=== PATIENT | male | born 1950 | race Caucasian/White ===

== ENCOUNTER → 2018-01-16 | Outpatient (CLI) | payer MEDICARE ==
--- NOTE | 2018-01-16 11:32 | ECHOF ---
Referral Reason:I10 Hypertension MEASUREMENTS -------- HEIGHT: 185.4 cm WEIGHT: 106.6 kg BP: IVSd: 1.7 cm (0.6 - 1.1) LVIDd: 3.5 cm (3.9 - 5.3) LVPWd: 1.4 cm (0.6 - 1.1) IVSs: 1.9 cm LVIDs: 2.1 cm LVPWs: 1.7 cm LAESV Index (A-L): 24.14 ml/m Ao Diam: 3.6 cm (2.0 - 3.7) AV Cusp: 2.6 cm (1.5 - 2.6) LA Diam: 3.2 cm (2.7 - 3.8) MV EXCURSION: 15.965 mm (> 18.000) MV EF SLOPE: 48 mm/s (70 - 150) EPSS: 0.6 cm MV E Luke: 0.73 m/s MV DecT: 241 ms MV A Luke: 0.65 m/s MV E/A Ratio: 1.13 AR PHT: 363 ms RAP: 5.00 mmHg RVSP: 28.38 mmHg FINDINGS -------- Sinus rhythm. This was a technically good study. The left ventricular size is normal. There is moderate concentric left ventricular hypertrophy. O verall left ventricular systolic function is normal with, an EF between 55 - 60 %. The right ventricle is normal in size. Normal LA size by volume 22+/-6 ml/m2. The right atrium is normal in size. There is mild aortic regurgitation. There is trace mitral regurgitation. Trace tricuspid regurgitation present. The right ventricular systolic pressure, as measured by Dopp ler, is 28.38mmHg. Pulmonic valve appears structurally normal. The aortic root size is normal. Normal inferior vena cava with normal inspiratory collapse consistent with estimated right atrial pre ssure of 5 mmHg. The pericardium is normal. CONCLUSIONS -------- 1. Sinus rhythm. 2. This was a technically good study. 3. The left ventricular size is normal. 4. There is moderate concentric left ventricular hypertrophy. 5. Overall left ventricular systolic function is normal with, an EF between 55 - 60 %. 6. The right ventricle is normal in size. 7. Normal LA size by volume 22+/-6 ml/m2. 8. The right atrium is normal in size. 9. There is mild aortic regurgitation. 10. There is trace mitral regurgitation. 11. Trace tricuspid regurgitation present. 12. The right ventricular systolic pressure, as measured by Doppler, is 28.38mmHg. 13. Pulmonic valve appears structurally normal. 14. The aortic root size is normal. 15. Normal inferior vena cava with normal inspiratory collapse consistent with estimated right atrial pressure of 5 mmHg. 16. The pericardium is normal. POLE CLASSIFIER: Dede Jenkins RDCS
== END | disposition home or self-care (01) ==
LOC: RADECHMAIN 08:03
PROVIDERS: ATTEND Family Medicine
DX: I35.1 Nonrheumatic aortic (valve) insufficiency (principal); I11.9 Hypertensive heart disease without heart failure
CPT/HCPCS: 93306

== ENCOUNTER 2024-09-20 14:29 | Emergency (ER) | payer MEDICARE ==
[2024-09-20 14:37] VITALS: RESP 18
--- NOTE | 2024-09-20 15:03 | ED ---
Fall HPI - General Source: patient, family Mode of arrival: ambulatory Limitations: no limitations <Kate Godwin - Last Filed: 09/20/24 16:18> <Tabby Orantes - Last Filed: 09/20/24 16:42> - General Chief Complaint: Fall Stated Complaint: Fall, chest injury Time Seen by Provider: 09/20/24 15:00 - History of Present Illness Initial Comments: 74-year-old male presented the ER status post fall. Patient reports he was standing on a wagon painting the side of his building. Patient states he took a step to the side while painting and accidentally stepped off of the wagon. Patient states he fell landing on his left shoulder/chest. Patient does admit to head injury and notes abrasion to forehead. He denies loss of consciousness or blood thinner use. Tetanus status unknown. Patient's main complaint is a sore left-sided chest pressure made worse with inspiration. He denies any dizziness, lightheadedness, nausea, vomiting or shortness of breath. Patient reports chest discomfort started after fall. He did take 2 Advil prior to arrival. Patient denies any neck pain or paresthesias to bilateral upper or lower extremities. No back pain. No other reported injuries. (Kate Godwin) - Related Data Allergies Allergy/AdvReac Type Severity Reaction Status Date / Time No Known Allergies Allergy Verified 09/20/24 14:37 Review of Systems ROS Other: All systems not noted in ROS Statement are negative. <Kate Godwin - Last Filed: 09/20/24 16:18> ROS Other: All systems not noted in ROS Statement are negative. <Tabby Orantes - Last Filed: 09/20/24 16:42> ROS Statement: Those systems with pertinent positive or pertinent negative responses have been documented in the HPI. Past Medical History Past Medical History: Diabetes Mellitus Additional Past Medical History / Comment(s): gout Past Surgical History: Hernia Repair Smoking Status: Never smoker Past Alcohol Use History: None Reported Past Drug Use History: None Reported <Kate Godwin - Last Filed: 09/20/24 16:18> General Exam Limitations: no limitations General appearance: alert, in no apparent distress Head exam: Present: normocephalic, normal inspection, other (Abrasion left forehead minimal ooze of blood.) Eye exam: Present: normal appearance, PERRL, EOMI. Absent: scleral icterus, conjunctival injection, periorbital swelling Pupils: Present: normal accommodation ENT exam: Present: normal exam, normal oropharynx, mucous membranes moist, normal external ear exam Neck exam: Present: normal inspection. Absent: tenderness, meningismus, lymph adenopathy Respiratory exam: Present: normal lung sounds bilaterally, chest wall tenderness (Left anterior chest. No paradoxical chest wall motions.). Absent: respiratory distress, wheezes, rales, rhonchi, stridor Cardiovascular Exam: Present: regular rate, normal rhythm, normal heart sounds. Absent: systolic murmur, diastolic murmur, rubs, gallop, clicks Extremities exam: Present: normal inspection, full ROM, normal capillary refill (2+ bilateral radial and PT pulses.). Absent: tenderness, pedal edema, joint swelling, calf tenderness Neurological exam: Present: alert, oriented X3, CN II-XII intact Skin exam: Present: warm, dry, intact, normal color, abrasion (Right knee). Absent: rash <Kate Godwin - Last Filed: 09/20/24 16:18> Course Vital Signs 09/20/24 14:32 Temperature 98.3 F Pulse Rate 72 Respiratory 18 Rate Blood Pressure 172/80 O2 Sat by Pulse 98 Oximetry Medical Decision Making <Kate Godwin - Last Filed: 09/20/24 16:18> <Tabby Orantes - Last Filed: 09/20/24 16:42> - Medical Decision Making Was pt. sent in by a medical professional or institution (TATIANA Dickerson, EXPORT ADMINISTRATOR, urgent care, hospital, or long term...) When possible be specific @ -[No] Did you speak to anyone other than the patient for history (EMS, parent, family, police, friend...)? What history was obtained from this source @ -Patient's , bedside, aiding in HPI past medical history. Did you review nursing and triage notes (agree or disagree)? Why? @ -[I reviewed and agree with nursing and triage notes] Were old charts reviewed (outside hosp., previous admission, EMS record, old EKG, old radiological studies, urgent care reports/EKG's, long term records)? Report findings @ -[No old charts were reviewed] Differential Diagnosis (chest pain, altered mental status, abdominal pain women, abdominal pain men, vaginal bleeding, weakness, fever, dyspnea, syncope, headache, dizziness, GI bleed, back pain, seizure, CVA, palpatations, mental health, musculoskeletal)? @ -Fracture, dislocation, contusion, hematoma, intracranial hemorrhage, concussion, abrasion, laceration this list does not like to be all-inclusive] EKG interpreted by me (3pts min.). @ -None done X-rays interpreted by me (1pt min.). @ -[None done] CT interpreted by me (1pt min.). @ -[None done] U/S interpreted by me (1pt. min.). @ -[None done] What testing was considered but not performed or refused? (CT, X-rays, U/S, labs)? Why? @ -[None] What meds were considered but not given or refused? Why? @ -[None] Did you discuss the management of the patient with other professionals (professionals i.e. , PA, EXPORT ADMINISTRATOR, lab, RT, psych nurse, social group worker, load checker, teacher, residential care officer, counter caser)? Give summary @ -[No] Was smoking cessation discussed for >3mins.? @ -[No] Was critical care preformed (if so, how long)? @ -[No] Were there social determinants of health that impacted care today? How? (Homelessness, low income, unemployed, alcoholism, drug addiction, transportation, low edu. Level, literacy, decrease access to med. care, fdc, rehab)? @ -[No] Was there de-escalation of care discussed even if they declined (Discuss DNR or withdrawal of care, Hospice)? DNR status @ -[No] What co-morbidities impacted this encounter? (DM, HTN, Smoking, COPD, CAD, Cancer, CVA, ARF, Chemo, Hep., AIDS, mental health diagnosis, sleep apnea, morbid obesity)? @ -[None] Was patient admitted / discharged? Hospital course, mention meds given and route, prescriptions, significant lab abnormalities, going to OR and other perti nent info. @ -[hospital course] Undiagnosed new problem with uncertain prognosis? @ -[No] Drug Therapy requiring intensive monitoring for toxicity (Heparin, Nitro, Insulin, Cardizem)? @ -[No] Were any procedures done? @ -[No] Diagnosis/symptom? @ -[default] Acute, or Chronic, or Acute on Chronic? @ -[default] Uncomplicated (without systemic symptoms) or Complicated (systemic symptoms)? @ -[default] Side effects of treatment? @ -[No] Exacerbation, Progression, or Severe Exacerbation? @ -[No] Poses a threat to life or bodily function? How? (Chest pain, [place], CA, pneumonia, PE, COPD, DKA, ARF, appy, cholecystitis, CVA, Diverticulitis, Homicidal, Suicidal, threat to staff... and all critical care pts) @ -[No] (Kate Godwin) Sinus bradycardia, rate 56 bpm slightly prolonged NE interval, parable 221 ms first-degree AV block, otherwise intervals within acceptable limits, no significant ST elevations or depressions (Tabby Orantes) Disposition Is patient prescribed a controlled substance at d/c from ED?: No Time of Disposition: 16:19 <Kate Godwin - Last Filed: 09/20/24 16:18> Is patient prescribed a controlled substance at d/c from ED?: No <Tabby Orantes - Last Filed: 09/20/24 16:42> Clinical Impression: Fall, Contusion of rib Disposition: HOME SELF-CARE Condition: Stable Instructions (If sedation given, give patient instructions): How to Use an Incentive Spirometer (ED), Rib Contusion (ED) Additional Instructions: You may take [id number] ibuprofen and Tylenol for pain control. Be sure to take deep breaths and use incentive spirometer throughout the day to prevent pneumonia. Follow closely with PCP. Return to the ER for any new or worsening concerns. Every disease is a spectrum and a small chance still exists that a serious condition could develop, for this reason, please monitor yourself closely for new, changing or worsening symptoms, symptoms that persist beyond 48 hours, difficulty in breathing, worsening chest pain, coughing up blood, chest pain with exertion fever, inability to tolerate/keep down fluids or your medications, inability to follow up with outpatient providers as instructed and should you experience these symptoms or should you have any further concerns for your wellbeing please return to the ED or call 911 immediately. PLEASE call your primary care physician as soon as possible to arrange / discuss plan for followup appointment. Appointment in the next 1-3 days is strongly encouraged if possible. PLEASE let us know here before you leave if there is anything further we can do to be of any assistance. Take care and feel Better! Referrals: Christopher Baeza, DO [Primary Care Provider] - 1-2 days
[2024-09-20] MEDS: ACETAMINOPHEN TAB 325 MG TAB PO STA (15:08)
[2024-09-20] MEDS: LIDOCAINE 4% PATCH TOPICAL ONE (15:09)
[2024-09-20] MEDS: DIPH,PERTUS(ACELL)TETVAC-LF 0.5 ML VIAL IM ONE (15:12)
--- NOTE | 2024-09-20 15:47 | CT ---
EXAMINATION TYPE: CT brain wo con CT DLP: 1170.4 mGycm, Automated exposure control for dose reduction was used. DATE OF EXAM: 09/20/2024 3:34 PM COMPARISON: None. CLINICAL INDICATION:Male, 74 years old with history of fall, fall, pain TECHNIQUE: Brain: Multiple axial CT images of the brain were obtained without IV contrast. . Coronal and sagitta l reformats reviewed. FINDINGS: Brain: Extra-axial spaces: No abnormal extra-axial fluid collections. Ventricular system: Within normal limits Cerebral parenchyma: No acute intraparenchymal hemorrhage or mass effect. The clinton-white junction is well differentiated. Cerebellum: Unremarkable. Mass effect: No evidence of midline shift. Intracranial vasculature: unremarkable Soft tissues: Normal. Calvarium/osseous structures: No depressed skull fracture. Paranasal sinuses and mastoid air cells: Clear Visualized orbits: Orbital contents are intact. IMPRESSION: No acute intracranial process. [facility], , 09/20/2024 3:45 PM
--- NOTE | 2024-09-20 16:02 | XR ---
EXAMINATION TYPE: XR ribs LT w pa chest xray (5 views), XR shoulder complete 3 views LT DATE OF EXAM: 09/20/2024 3:38 PM COMPARISON: None CLINICAL INDICATION: Male, 74 years old with history of fall; PHH, pain FINDINGS: CHEST: Heart upper limits of normal in size. Aorta and pulmonary vasculature within normal limits. Some stra ndy atelectasis in lower lungs. No consolidation or pleural effusion. Left RIBS: No displaced left rib fracture is seen. Left shoulder: AC joint appears congruent without any abnormal offset. Subacromial space is preserved. There is mode rate degenerative change of the glenohumeral joint with marginal coronary Space narrowing. Some bony irregularity at the greater tuberosity. IMPRESSION: 1. Chest: Chronic changes. No acute process seen. 2. Left rib: No displaced left rib fractures. 3. Left shoulder: Moderate glenohumeral joint OA. Some bony changes at the greater tuberosity suggest ing chronic rotator cuff tendinopathy. [facility], Workstation: [facility], 09/20/2024 4:00 PM
[2024-09-20 17:03] VITALS: BP 166/87; PULSE 54; TEMP 97.4
== END 2024-09-20 17:04 | disposition home or self-care (01) ==
LOC: EC 14:29
DX: S20.219A Contusion of unspecified front wall of thorax, initial encounter (principal); Z23 Encounter for immunization; W18.30XA Fall on same level, unspecified, initial encounter
CPT/HCPCS: 70450; 90471; 90715; 93005; 99284